=== PATIENT | female | born 2000 ===

== ENCOUNTER → 2022-08-09 12:37 | Outpatient (BNVA) | payer BC, SELFPAY | PROVIDERS: PCP Pediatrics; Visit Provider Internal Medicine ==

== ENCOUNTER 2022-10-06 12:58 | Outpatient (AMB) | payer BC, SELFPAY ==
--- NOTE | 2022-10-06 12:59 | A.OFFVIS_ITS ---
Intake Intake Visit Reasons: 8 week gerd fu Intake Note: Jenny presents as a video call 8 week follow up for GERD. CC: She states that she finished her omeprazole that she got from her last visit and she is not having any concerns today. Allergies No Known Allergies Allergy (Verified 08/09/22 12:38) HPI HPI Comments History of Present Illness Details This is a 21y.o F with no significant hx who is scheduled for a video visit for abdominal pain. 08/09/22: Reports significant acid reflux siddhartha postprandially with almost any food. Has frequent belching and regurgitation. Worse with dejesus peppers, water melon, red meat, tomatoes etc. Started almost in her early teens. Had extensive work up done for this initially including imaging, endoscopy, HIDA scan, stool testing. Unsure if had esop bx for EoE. Also unsure if had celiac testing. Had been omeprazole and it helped at that time. 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 No changes in appetite or bowel habits. 10/06/22: Requested the visit to be video tele. Pt reports good response to PPI x 8 weeks but does not wish to cont this indefinitely. Also reports other sx such as needing to lamar to the bathroom shortly after a meal and postprandial fullness. Records from [facility] reviewed. Was under care of Dr Perez and underwent extensive testing in 2019 and 2019 as pt had previously mentioned including endoscopy, stool testing, small bowel imaging, GES, HIDA scan and ultimately diagnosed with functional dyspepsia. 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 [facility] Social History Household Members: Family Alcohol intake: never Patient Tobacco Use Status: Never used Tobacco Review of Systems Const All systems reviewed & are unremarkable except as noted in HPI and below Physical Exam Video visit: NAD Nontoxic appearing Speaking in full sentences No dysphasia or dysarthria Assessment & Plan Assessment & Plan (1) Epigastric pain: Code(s): R10.13 - Epigastric pain (2) Acid reflux: Code(s): K21.9 - Gastro-esophageal reflux disease without esophagitis (3) Bloating: Code(s): R14.0 - Abdominal distension (gaseous) (4) Functional dyspepsia: Code(s): K30 - Functional dyspepsia Plan Reviewed with the pt in light of previous testing done, agree that sx most consistent wtih functional dyspepsia and can trial TCA for neuromodulation. Plan: - Start nortriptyline 10mg PO once daily at bedtime - Common side effects reviewed - If tolerated well, dose to uptitrated to 20mg in 4 weeks - Follow up in 8 weeks. Labs ordered to be done before the visit. Orders: Orders Calprotectin, Fecal 7 Weeks K30 - Functional dyspepsia Liver Panel 7 Weeks K30 - Functional dyspepsia TSH reflex Free T4 7 Weeks K30 - Functional dyspepsia Complete Blood Count no Diff 7 Weeks K30 - Functional dyspepsia Immunoglobulin A 7 Weeks K30 - Functional dyspepsia Transglutaminase IgA 7 Weeks K30 - Functional dyspepsia Medications: New nortriptyline 10 mg PO BEDTIME 90 caps 0RF Discontinued omeprazole Discontinued Reason: Doctor's Order 20 mg PO DAILY 56 caps 0RF Telehealth Telehealth Location of provider rendering services: practice address Location of patient: address on file Patient Identification confirmed using: Name, : Yes Telehealth method: video Patient verbally consented to treatment: Yes Patient verbally consented to billing insurance company: Yes Patient informed of any privacy concerns related to visit: Yes Minutes spent on Phone/Video with Pt.: 15 Coding Level of Care Code Tele Est Pt Level 4 (35105) Diagnoses Epigastric pain R10.13 Acid reflux K21.9 Bloating R14.0 Functional dyspepsia K30
== END 2022-10-06 13:48 | disposition home or self-care (01) ==
LOC: HO.HGI 12:58
PROVIDERS: PCP Pediatrics; Visit Provider Internal Medicine
DX: K21.9 Gastro-esophageal reflux disease without esophagitis (principal); R14.0 Abdominal distension (gaseous); K30 Functional dyspepsia; R10.13 Epigastric pain
CPT/HCPCS: 99214

== ENCOUNTER → 2022-10-06 12:58 | Outpatient (BNVA) | payer BC, SELFPAY | PROVIDERS: PCP Pediatrics; Visit Provider Internal Medicine ==

== ENCOUNTER 2022-12-26 08:45 | Outpatient (REF) | payer BC, SELFPAY ==
[2022-12-28 12:44] LABS: Immunoglobulin A 105 mg/dL (47-310)
[2022-12-28 12:53] LABS: Transglutaminase IgA <1.0 U/mL
== END 2022-12-26 08:46 | disposition home or self-care (01) ==
LOC: HO.LAB 08:45
PROVIDERS: Visit Provider Internal Medicine
DX: K30 Functional dyspepsia (principal); K21.9 Gastro-esophageal reflux disease without esophagitis; R14.0 Abdominal distension (gaseous)
CPT/HCPCS: 36415; 80076; 82784; 84443; 85027; 86364

== ENCOUNTER 2022-12-26 08:52 | Outpatient (AMB) | payer BC, SELFPAY ==
--- NOTE | 2022-12-26 09:05 | MHC.OFFVIS ---
Intake Vital Signs 12/26/22 09:06 Height 5 ft 9 in Weight 185 lb 3.013 oz BMI 27.3 BP 119/68 Blood Pressure Location Lt brachial Position Sitting Pulse 77 Intake Visit Reasons: 8 week follow up Intake Note: Jenny presents in the office as a 8 week follow up. CC: She is not having ay concerns today. Allergies No Known Allergies Allergy (Verified 12/26/22 09:06) HPI HPI Comments History of Present Illness Details This is a 21y.o F with no significant hx who is scheduled for a video visit for abdominal pain. 08/09/22: Reports significant acid reflux siddhartha postprandially with almost any food. Has frequent belching and regurgitation. Worse with dejesus peppers, water melon, red meat, tomatoes etc. Started almost in her early teens. Had extensive work up done for this initially including imaging, endoscopy, HIDA scan, stool testing. Unsure if had esop bx for EoE. Also unsure if had celiac testing. Had been omeprazole and it helped at that time. However stopped almost a year ago as she is hesitant to stay on it skilled nursing. No changes in appetite or bowel habits. 10/06/22: Requested the visit to be video tele. Pt reports good response to PPI x 8 weeks but does not wish to cont this indefinitely. Also reports other sx such as needing to lamar to the bathroom shortly after a meal and postprandial fullness. Records from [facility] reviewed. Was under care of Dr Perez and underwent extensive testing in 2019 and 2019 as pt had previously mentioned including endoscopy, stool testing, small bowel imaging, GES, HIDA scan and ultimately diagnosed with functional dyspepsia. 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 12/26/22: Here with her mom. Did well on nortriptyline 10mg PO once daily dosing. However when she went up to 20mg dosing would notice pronounced globus sensation which she would tried to mitigate with swallowing water. Tried to stay on the 20mg dose x 2 weeks but when sx persisted she went back down to 10mg which worked well for her. Otherwise, no other concerns. No regurgitation, belching or soft stools anymore. [facility] Family History (Updated 12/26/22 @ 09:07 by MARIELENA Carrington) Mother Hx of colonic polyps Social History Household Members: Family Alcohol intake: never Patient Tobacco Use Status: Never used Tobacco Review of Systems Const All systems reviewed & are unremarkable except as noted in HPI and below Physical Exam Vital Signs: Last Vital Signs Pulse 77 12/26/22 09:06 BP 119/68 12/26/22 09:06 BMI result Body Mass Index 27.3 Gen appear: NAD HEENT: nonicteric, no cervical lymphadenopathy Chest: CTA CVS: Regular S1/S2 Abd: soft, nontender, nondistended, bowel sounds + Ext: no peripheral edema Neuro: A/Ox3, noted to move all extremities spontaneously Psych: interacting appropriately Assessment & Plan Assessment & Plan (1) Epigastric pain: Code(s): R10.13 - Epigastric pain (2) Acid reflux: Code(s): K21.9 - Gastro-esophageal reflux disease without esophagitis (3) Bloating: Code(s): R14.0 - Abdominal distension (gaseous) (4) Functional dyspepsia: Code(s): K30 - Functional dyspepsia Plan Reviewed with the pt in light of previous testing done, agree that sx most consistent wtih functional dyspepsia and trial of TCA so far has been successful. Will stay on nortriptyline 10 dose for now. Plan: - Cont nortriptyline 10mg PO once daily at bedtime. Refills sent. - Common side effects reviewed - Reminded to get labs done - Follow up in 6 months, unless actionable findings on labs Orders: Orders Immunoglobulin A Today K30 - Functional dyspepsia Transglutaminase IgA Today K30 - Functional dyspepsia TSH reflex Free T4 Today K30 - Functional dyspepsia Complete Blood Count no Diff Today K30 - Functional dyspepsia Liver Panel Today K30 - Functional dyspepsia Medications: Refilled nortriptyline 10 mg PO BEDTIME 90 caps 2RF Coding Level of Care Code Est Pt Level 4 (83032) Diagnoses Epigastric pain R10.13 Acid reflux K21.9 Bloating R14.0 Functional dyspepsia K30
[2022-12-26 09:06] VITALS: BP 119/68; PULSE 77; BMI 27.3
== END 2022-12-26 09:36 | disposition home or self-care (01) ==
PROVIDERS: PCP Pediatrics; Visit Provider Internal Medicine
DX: K21.9 Gastro-esophageal reflux disease without esophagitis (principal); R14.0 Abdominal distension (gaseous); K30 Functional dyspepsia
CPT/HCPCS: 99214

== ENCOUNTER 2023-06-29 11:48 | Outpatient (AMB) | payer BC, SELFPAY ==
--- NOTE | 2023-06-29 11:49 | A.OFFVIS_ITS ---
Intake Intake Visit Reasons: 6 month follow up Intake Note: Jenny presents as a video call today and states that she is not having any concerns. Allergies No Known Allergies Allergy (Verified 12/26/22 09:06) HPI HPI Comments History of Present Illness Details This is a 21y.o F with no significant hx who is scheduled for a video visit for abdominal pain. 08/09/22: Reports significant acid reflux siddhartha postprandially with almost any food. Has frequent belching and regurgitation. Worse with dejesus peppers, water melon, red meat, tomatoes etc. Started almost in her early teens. Had extensive work up done for this initially including imaging, endoscopy, HIDA scan, stool testing. Unsure if had esop bx for EoE. Also unsure if had celiac testing. Had been omeprazole and it helped at that time. However stopped almost a year ago as she is hesitant to stay on it care home. No changes in appetite or bowel habits. 10/06/22: Requested the visit to be video tele. Pt reports good response to PPI x 8 weeks but does not wish to cont this indefinitely. Also reports other sx such as needing to lamar to the bathroom shortly after a meal and postprandial fullness. Records from [facility] reviewed. Was under care of Dr Perez and underwent extensive testing in 2019 and 2019 as pt had previously mentioned including endoscopy, stool testing, small bowel imaging, GES, HIDA scan and ultimately diagnosed with functional dyspepsia. 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 12/26/22: Here with her mom. Did well on nortriptyline 10mg PO once daily dosing. However when she went up to 20mg dosing would notice pronounced globus sensation which she would tried to mitigate with swallowing water. Tried to stay on the 20mg dose x 2 weeks but when sx persisted she went back down to 10mg which worked well for her. Otherwise, no other concerns. No regurgitation, belching or soft stools anymore. 06/29/23: Tele-video visit: Reports no gastrointestinal complaints. Doing well on nortriptyline 10 mg once daily at night. Needs refill. Otherwise, has not had return of her previous GI symptoms of globus sensation, abdominal discomfort or increased burping. Does report school days days with a bit stressful, but able to cope well. She is in the middle of finding a new PCP. PFSH Family History Mother Hx of colonic polyps Social History Household Members: Family Alcohol intake: never Patient Tobacco Use Status: Never used Tobacco Review of Systems Const All systems reviewed & are unremarkable except as noted in HPI and below Physical Exam Vital Signs: Video visit: Appears well Able to speak in full sentences No overt respiratory distress No facial asymmetry Assessment & Plan Assessment & Plan (1) Epigastric pain: Code(s): R10.13 - Epigastric pain (2) Acid reflux: Code(s): K21.9 - Gastro-esophageal reflux disease without esophagitis (3) Bloating: Code(s): R14.0 - Abdominal distension (gaseous) (4) Functional dyspepsia: Code(s): K30 - Functional dyspepsia Plan Continues to do well and remains symptom-free or nortriptyline 10 mg at nighttime. Refills sent to the pharmacy today. Plan: - Cont nortriptyline 10mg PO once daily at bedtime. - follow-up in GI office as needed, but patient encouraged to call us for any new questions or concerns that may arise - she was also reminded to give us her new PCP info so we may send over communication Orders: Orders Basic Metabolic Panel Today K30 - Functional dyspepsia Complete Blood Count no Diff Today K30 - Functional dyspepsia Medications: Refilled nortriptyline 10 mg PO BEDTIME 90 caps 2RF Coding Level of Care Code Tele Est Pt Level 3 (05180) Diagnoses Epigastric pain R10.13 Acid reflux K21.9 Bloating R14.0 Functional dyspepsia K30
== END 2023-06-29 13:40 | disposition home or self-care (01) ==
LOC: HO.HGI 11:48
PROVIDERS: PCP Pediatrics; Visit Provider Internal Medicine
DX: K21.9 Gastro-esophageal reflux disease without esophagitis (principal); R14.0 Abdominal distension (gaseous); K30 Functional dyspepsia
CPT/HCPCS: 99213

== ENCOUNTER → 2023-06-29 11:48 | Outpatient (BNVA) | payer BC, SELFPAY | PROVIDERS: PCP Pediatrics; Visit Provider Internal Medicine ==